=== PATIENT | female | born 1995 | race African-American/Black ===

== ENCOUNTER 2024-04-27 16:39 | Emergency (ER) | payer OTHER ==
[2024-04-27 16:44] VITALS: BP 135/85; PULSE 109; RESP 18; TEMP 98; BMI 21.2
[2024-04-27 17:35] LABS: BASO % 0.6 % (0-2.0); EOS % 1.3 % (0-4.5); HEMOGLOBIN 13.8 GM/dL (10.7-15.3); LYMPH % 22.8 % (8-40); MCH 26.9 pg (25.7-33.7); MCHC 32.8 g/dl (32.0-36.0); MEAN CELL VOLUME 81.8 fl (80-96); MEAN PLT VOLUME 10.6 fl (7.5-11.1); MONO % 7.8 % (3.8-10.2); NEUT % 67.5 % (42.8-82.8); PLATELET COUNT 164 10^3/uL (134-434); RBC 5.14 M/mm3 (3.60-5.2); RDW 13.8 % (11.6-15.6); WHITE BLOOD COUNT 8.1 K/mm3 (4.0-10.0)
[2024-04-27 17:40] LABS: INR 1.16 (0.83-1.09)
[2024-04-27 18:02] LABS: CALCIUM 9.7 mg/dL (8.5-10.1)
[2024-04-27 18:03] LABS: ALBUMIN 4.5 g/dl (3.4-5.0); BLOOD UREA NITROGEN 8.7 mg/dL (7-18)
[2024-04-27 18:06] LABS: CREATININE 1.1 mg/dL (0.55-1.3)
[2024-04-27 18:07] LABS: BILIRUBIN,TOTAL 0.8 mg/dL (0.2-1); TOT PROT 8.2 g/dl (6.4-8.2)
== END 2024-04-27 18:40 | disposition home or self-care (01) ==
LOC: JERFT 16:39
DX: L81.9 Disorder of pigmentation, unspecified (principal); R21 Rash and other nonspecific skin eruption
CPT/HCPCS: 36415; 80053; 85025; 85610; 85651; 86140; 99283-25